=== PATIENT | male | born 1995 | race Asian ===

== ENCOUNTER 2018-07-08 17:12 | Emergency (ER) | payer SELFPAY ==
[~2018-07-08] VITALS: Ht 177.8 cm; Wt 56.2 kg
[2018-07-08 17:23] VITALS: Ht 177.8 cm; Wt 56.2 kg
[2018-07-08 19:59] VITALS: BP 149/88
== END 2018-07-08 19:59 | disposition home or self-care (01) ==
LOC: ED 17:12
DX: M43.6 Torticollis (principal); V49.88XA Car occupant (driver) (passenger) injured in other specified transport accidents, initial encounter; Y93.89 Activity, other specified; Y92.89 Other specified places as the place of occurrence of the external cause; Y99.8 Other external cause status